=== PATIENT | female | born 1950 | race Caucasian/White ===

== ENCOUNTER 2018-02-22 19:39 | Emergency (ER) | payer MEDICARE, BC ==
[2018-02-22 20:22] LABS: %Lymphocytes 38.6 % (21.0-51.0); %Neutrophils 50.4 % (42.0-75.0); Hemoglobin 14.2 g/dL (12.0-16.0); Manual Diff?? YES; Mean Corpuscular Hemoglobin 28.2 pg (27.0-31.0); Mean Corpuscular Volume 80.6 fL (81.0-99.0); Mean Platelet Volume 8.1 fL (7.4-10.4); Platelet Count 240 thou/uL (130-400); RBC Distribution Width 12.2 % (11.5-14.5); Red Blood Cell (RBC) Count 5.03 mill/uL (4.20-5.40); White Blood Cell (WBC) Count 7.8 thou/uL (4.8-10.8)
[2018-02-22 20:23] LABS: #Neutrophils 3.9 thou/uL (1.40-6.50); %Eosinophils 1.2 % (0.0-10.0)
[2018-02-22 20:25] LABS: #Basophils 0.1 thou/uL (0.0-0.2); #Eosinphils 0.1 thou/uL (0.0-0.7); #Monocytes 0.6 thou/uL (0.11-0.59); ALT (SGPT) 34 U/L (8-55); AST (SGOT) 26 U/L (5-34); Albumin 4.6 g/dL (3.4-4.8); Alkaline Phosphatase 75 U/L (40-150); Anion Gap 18 mmol/L (10-20); BUN (Urea Nitrogen) 11 mg/dL (9.8-20.1); Bilirubin, Total 0.3 mg/dL (0.2-1.2); CK (CPK) 234 U/L (29-168); Calc. Creatinine Clearance 0 mL/min (70-130); Calcium 10.1 mg/dL (7.8-10.44); Carbon Dioxide 26 mmol/L (23-31); Chloride 102 mmol/L (98-107); Estimated GFR-MDRD 65; Globulin 3.9 g/dL (2.4-3.5); Glucose 95 mg/dL (80-115); Lipase 35 U/L (8-78); MDiff Complete? YES; Potassium 3.6 mmol/L (3.5-5.1); Protein, Total 8.5 g/dL (6.0-8.3); Sodium 142 mmol/L (136-145)
[2018-02-22 20:26] LABS: CKMB 3.5 ng/mL (0-6.6); Troponin I Less than 0.010 ng/mL (< 0.028)
[2018-02-22] MEDS ORDERED: Nitroglycerin 2% Ointment 1 INCH/1 GM Packet ONE (20:38)
--- NOTE | 2018-02-22 23:09 | RAD ---
AP PORTABLE CHEST: 02/22/2018 1959 HOURS COMPARISON: No prior films available for comparison. FINDINGS: Normal sized heart and clear lungs. No infiltrate or effusion seen. No vascular congestion or edema . IMPRESSION: No acute thoracic findings. POS: HOME
[2018-02-22 23:30] LABS: %Basophils 1.7 % (0.0-1.0)
== END 2018-02-22 21:57 | disposition short-term general hospital (02) ==
LOC: BURERS 19:39
DX: I10 Essential (primary) hypertension (principal); Z79.899 Other long term (current) drug therapy
CPT/HCPCS: 71045; 80053; 82550; 82553; 83690; 84484; 85025; 93005; 94760